=== PATIENT | female | born 1995 | race Caucasian/White ===

== ENCOUNTER 2017-02-03 08:05 | Emergency (ER) | payer OTHER ==
[2017-02-03 08:11] VITALS: BP 116/63; PULSE 96; RESP 18; TEMP 98
--- NOTE | 2017-02-03 08:24 | ED ---
Abdominal Pain HPI - General Chief Complaint: OB/Uterine Contractions Stated Complaint: 18 wks preg. No movement Time Seen by Provider: 02/03/17 08:16 Source: patient, RN notes reviewed Mode of arrival: ambulatory Limitations: no limitations - History of Present Illness Initial Comments: This a 21-year-old female presents emergency Department with chief complaint of lower abdominal pain, no movement. Patient states that she is A0 and currently [address] Turcios for her . Patient states that she normally feels some fluttering states that she has not felt that over 24 hours. Patient states that she tried pain in her room last night and noticed that she developed this lower abdominal pain. She states intermittent sharp jabbing type pain. Patient denies any nausea vomiting diarrhea, constipation. Patient denies any vaginal bleeding vaginal discharge. She has no dysuria no hematuria. Patient states she has an appointment in 10 days with her WIG STYLIST along with an ultrasound at that time. She said no, in fact return to - Related Data Allergies Allergy/AdvReac Type Severity Reaction Status Date / Time No Known Allergies Allergy Verified 02/03/17 08:10 Review of Systems ROS Statement: Those systems with pertinent positive or pertinent negative responses have been documented in the HPI. ROS Other: All systems not noted in ROS Statement are negative. Past Medical History Past Medical History: No Reported History History of Any Multi-Drug Resistant Organisms: None Reported Past Surgical History: No Surgical Hx Reported Past Psychological History: No Psychological Hx Reported Smoking Status: Never smoker Past Alcohol Use History: None Reported Past Drug Use History: None Reported General Exam Limitations: no limitations General appearance: alert, in no apparent distress Head exam: Present: atraumatic, normocephalic, normal inspection Respiratory exam: Present: normal lung sounds bilaterally. Absent: respiratory distress, wheezes, rales, rhonchi, stridor Cardiovascular Exam: Present: regular rate, normal rhythm, normal heart sounds. Absent: systolic murmur, diastolic murmur, rubs, gallop, clicks GI/Abdominal exam: Present: soft, normal bowel sounds. Absent: distended, tenderness, guarding, rebound, rigid Back exam: Absent: CVA tenderness (R), CVA tenderness (L) Skin exam: Present: warm, dry, intact, normal color. Absent: rash Course Vital Signs 02/03/17 08:07 Temperature 98 F Pulse Rate 96 Respiratory 18 Rate Blood Pressure 116/63 O2 Sat by Pulse 98 Oximetry Medical Decision Making - Medical Decision Making 21-year-old female presented for lower abdominal pain, decreased movement. Patient's heart rate was between 140 and 150 which is appropriate. Patient's pain is more consistent with round ligament pain. Patient's urinalysis does not show any evidence of UTI. Patient does not have any vaginal bleeding or vaginal discharge. She states that she follow-up with her WIG STYLIST. Return parameters were discussed. - Lab Data Lab Results 02/03/17 Range/Units 08:20 Urine Color Light Yellow Urine Appearance Cloudy H (Clear) Urine pH 7.0 (5.0-8.0) Ur Specific [place]dock 1.006 (1.001-1.035) Urine Protein Negative (Negative) Urine Glucose (UA) Negative (Negative) Urine Ketones Negative (Negative) Urine Blood Negative (Negative) Urine Nitrite Negative (Negative) Urine Bilirubin Negative (Negative) Urine Urobilinogen <2.0 (<2.0) mg/dL Ur Leukocyte Esterase Small H (Negative) Urine WBC 1 (0-5) /hpf Ur Squamous Epith Cells 1 (0-4) /hpf Amorphous Sediment Rare H (None) /hpf Urine Mucus Occasional H (None) /hpf Disposition Clinical Impression: Round ligament pain Disposition: HOME SELF-CARE Condition: Stable Instructions: Abdominal Pain in (ED) Additional Instructions: Please return to the Emergency Department if symptoms worsen or any other concerns. Referrals: Renay Rasheed MD [Primary Care Provider] - 1-2 days Jeevan Harper MD [STAFF PHYSICIAN] - 1-2 days Time of Disposition: 09:10
[2017-02-03 08:39] LABS: Amorphous Sediment,Urine Rare /hpf; Appearance,Urine Cloudy (Clear); Bilirubin,Urine Negative (Negative); Glucose,Urine (UA) Negative (Negative); Ketones,Urine Negative (Negative); Leukocyte Esterase,Urine Small (Negative); Mucus,Urine Occasional /hpf; Nitrite,Urine Negative (Negative); Particle Count 6430; Protein,Urine Negative (Negative); Specific Gravity,Urine 1.006 (1.001-1.035); Squamous Epithelial Cell,Urine 1 /hpf (0-4); UA Billing (MACRO vs. MICRO) MICRO; Urobilinogen,Urine <2.0 mg/dL (<2.0); WBC,Urine 1 /hpf (0-5)
== END 2017-02-03 09:19 | disposition home or self-care (01) ==
LOC: EC 08:05
DX: O99.89 Other specified diseases and conditions complicating pregnancy, childbirth and the puerperium (principal); R10.2 Pelvic and perineal pain; Z3A.18 18 weeks gestation of pregnancy
CPT/HCPCS: 81001; 99284

== ENCOUNTER 2017-06-13 12:15 | Outpatient (CLI) | payer OTHER ==
[2017-06-13 13:44] VITALS: BP 121/65; PULSE 93; RESP 18; TEMP 98.5
--- NOTE | 2017-07-21 16:41 | P.MSEPDOC ---
Presenting Problems - Arrival Data Date of Arrival on Unit: 06/13/17 Time of Arrival on Unit: 12:10 Mode of Transport: Ambulatory - Complaint OB-Reason for Admission/Chief Complaint: Vaginal Bleeding Medical History - Information : 1 Para: 0 Term: 0 : 0 Abortions: Spontaneous or Elective: 0 Number of Living Children: 0 - Gestational Age Gestational Age by JESSICA (wks/days): 36 Weeks and 4 Days Review of Systems - Review of Systems Constitutional: No problems Breast: No problems ENT: No problems Cardiovascular: No problems Respiratory: No problems Gastrointestinal: No problems Genitourinary: No problems Musculoskeletal: No problems Neurological: No problems Skin: No problems Vital Signs - Temperature Temperature: 98.5 F Temperature Source: Oral - Pulse Right Brachial Pulse Rate: 93 Pulse Assessment Method: Automatic Cuff - Respirations Respiratory Rate: 18 Oxygen Delivery Method: Room Air O2 Sat by Pulse Oximetry: 97 - Blood Pressure Right Arm Blood Pressure: 121/65 Blood Pressure Mean: 83 Blood Pressure Source: Automatic Cuff Medical Screen Scoring (Pre) - Cervical Exam Dilation: 1-3 cm = 1 Effacement: More than 50% = 2 Membranes: Intact - Uterine Contractions Frequency: N/A Duration: N/A Intensity: N/A - Maternal Vital Signs Maternal Temperature: N/A Maternal Blood Pressure: N/A Signs of Preeclampsia: N/A Maternal Respirations: N/A - Pain Assessment Pain Location and Character: Abdomen Pain Scale Used: Numeric (1 - 10) Pain Intensity: 5 Pain Management Goal: 10 Pain Description: *Acute, Pressure Pain Radiation Location: 0 Pain Frequency: Constant Pain Behavior: None Exhibited - Maternal Trauma Maternal Trauma: N/A - Assessment Baseline FHR: 135 Heart Rate - NICHD Category: Category I (Normal) = 0 NST: Reactive Position: N/A Station: N/A - Total Score Total Score (Pre): 3 - Level of Risk Level of Risk: Low (0-5) Physician Notification (Pre) - Physician Notified Physician Notified Date: 06/13/17 Physician Notified Time: 12:55 Physician/Practitioner Notifed:: Dr. Harper Spoke With: Dr. Harper New Order Received: Yes - Notification Comment Comment: Dr. Harper on unit. Report given. Order to complete SVE. SVE completed. 1/60/high. No blood noted. Discharge home on pelvic rest. Pt to keep scheduled appointment on 06/20/2017. Disposition - Disposition OB Disposition: Discharge to home, Written follow up instructions reviewed Transferred to:: Home Discharge Date: 06/13/17 Discharge Time: 13:15 I agree with the RN Medical Screening Exam: Yes Risk & Benefit of care provided described in d/c instruction: Yes Diagnosis: SPOTTING COMPLICATING , THIRD TRIMESTER
== END 2017-06-13 13:15 | disposition home or self-care (01) ==
LOC: FBPOP 12:15
PROVIDERS: ATTEND Obstetrics & Gynecology
DX: O26.853 Spotting complicating pregnancy, third trimester (principal); Z3A.36 36 weeks gestation of pregnancy
CPT/HCPCS: 59025; 99213

== ENCOUNTER 2017-06-25 21:50 | Outpatient (CLI) | payer OTHER ==
[2017-06-25 22:35] VITALS: BP 137/86; PULSE 101; RESP 16; TEMP 97.1
--- NOTE | 2017-07-01 09:54 | P.MSEPDOC ---
Presenting Problems - Arrival Data Date of Arrival on Unit: 06/25/17 Time of Arrival on Unit: 21:51 Mode of Transport: Ambulatory - Complaint OB-Reason for Admission/Chief Complaint: Other Comment: decreased movement. Medical History - Information : 1 Para: 0 Term: 0 : 0 Abortions: Spontaneous or Elective: 0 Number of Living Children: 0 - Gestational Age Gestational Age by JESSICA (wks/days): 38 Weeks and 2 Days Review of Systems - Review of Systems Constitutional: No problems Breast: No problems ENT: No problems Cardiovascular: No problems Respiratory: No problems Gastrointestinal: No problems Genitourinary: No problems Musculoskeletal: No problems Neurological: No problems Skin: No problems Vital Signs - Temperature Temperature: 97.1 F Temperature Source: Temporal Artery Scan - Pulse Right Pulse Rate: 101 Pulse Assessment Method: Pulse Oximetry - Respirations Respiratory Rate: 16 Oxygen Delivery Method: Room Air O2 Sat by Pulse Oximetry: 98 - Blood Pressure Right Arm Blood Pressure: 137/86 Blood Pressure Mean: 103 Blood Pressure Source: Automatic Cuff Medical Screen Scoring (Pre) - Cervical Exam Dilation: 0 cm = 0 Effacement: Exam Deferred Membranes: Intact - Uterine Contractions Frequency: N/A Duration: N/A Intensity: N/A - Maternal Vital Signs Maternal Temperature: N/A Maternal Blood Pressure: N/A Signs of Preeclampsia: N/A Maternal Respirations: N/A - Pain Assessment Pain Location and Character: Abdomen Pain Scale Used: Numeric (1 - 10) Pain Intensity: 6 Pain Management Goal: 0 Pain Description: *Acute, Aching Pain Frequency: Intermittent Pain Duration Units: Minutes Pain Behavior: Vocalization Non-Pharmacological Interventions: Environmental Control, Position/Reposition, Relaxation Technique - Maternal Trauma Maternal Trauma: N/A - Assessment Baseline FHR: 135 Heart Rate - NICHD Category: Category I (Normal) = 0 NST: Reactive Position: N/A Station: N/A - Total Score Total Score (Pre): 0 - Level of Risk Level of Risk: Low (0-5) Physician Notification (Pre) - Physician Notified Physician Notified Date: 06/25/17 Physician Notified Time: 22:21 Physician/Practitioner Notifed:: Dr. Preciado Spoke With: Dr. Preciado New Order Received: Yes (discharge home with instructions.) Medical Screen Scoring (Post) - Cervical Exam Dilation: Exam Deferred Effacement: Exam Deferred Membranes: Intact - Uterine Contractions Frequency: N/A Duration: N/A Intensity: N/A - Maternal Vital Signs Maternal Temperature: N/A Maternal Blood Pressure: N/A Signs of Preeclampsia: N/A Maternal Respirations: N/A - Pain Assessment Pain Location and Character: Abdomen Pain Scale Used: Numeric (1 - 10) Pain Intensity: 6 Pain Management Goal: 0 Pain Description: *Acute, Aching Pain Frequency: Intermittent Pain Behavior: Vocalization Non-Pharmacological Interventions: Distraction, Environmental Control, Position/ Reposition, Relaxation Technique - Maternal Trauma Maternal Trauma: N/A - Assessment Heart Rate: 140 Heart Rate - NICHD Category: Category I (Normal) = 0 NST: Reactive Position: N/A Station: N/A - Total Score Total Score (Post): 0 - Post Treatment Level of Risk Post Treatment Level of Risk: Low (0-5) Physician Notification (Post) - Physician Notified Physician Notified Date: 06/25/17 Physician Notified Time: 22:21 Physician/Practitioner Notified:: Dr. Preciado Spoke With: Dr. Preciado New Order Received: Yes (Discharge home with instructions.) Disposition - Disposition OB Disposition: Discharge to home Discharge Date: 06/25/17 Discharge Time: 22:21 I agree with the RN Medical Screening Exam: Yes Risk & Benefit of care provided described in d/c instruction: Yes Diagnosis: DECREASED MOVEMENTS, THIRD TRIMESTER, FETUS 1
== END 2017-06-25 22:25 | disposition home or self-care (01) ==
LOC: FBPOP 21:50
PROVIDERS: ATTEND Obstetrics & Gynecology
DX: O36.8193 Decreased fetal movements, unspecified trimester, fetus 3 (principal); O36.8131 Decreased fetal movements, third trimester, fetus 1; Z3A.38 38 weeks gestation of pregnancy
CPT/HCPCS: 59025; 99213

== ENCOUNTER 2017-07-03 17:43 | Outpatient (CLI) | payer OTHER ==
[2017-07-03 18:03] LABS: Mucus,Urine Occasional /hpf; RBC,Urine >182 /hpf (0-5); Squamous Epithelial Cell,Urine 1 /hpf (0-4)
[2017-07-03 18:07] LABS: Color,Urine Dark Red
[2017-07-03 18:08] LABS: Appearance,Urine Bloody (Clear)
[2017-07-03 19:33] VITALS: BP 128/77; PULSE 90; RESP 16; TEMP 97.2
--- NOTE | 2017-07-22 10:22 | P.MSEPDOC ---
Presenting Problems - Arrival Data Date of Arrival on Unit: 07/03/17 Time of Arrival on Unit: 17:43 Mode of Transport: Ambulatory - Complaint Comment: blood in urine Medical History - Information : 1 Para: 0 Term: 0 : 0 Abortions: Spontaneous or Elective: 0 Number of Living Children: 0 - Gestational Age Gestational Age by JESSICA (wks/days): 39 Weeks and 3 Days - History Complications: GBS+ Review of Systems - Review of Systems Constitutional: No problems Breast: No problems ENT: No problems Cardiovascular: No problems Respiratory: No problems Gastrointestinal: No problems Genitourinary: No problems Musculoskeletal: No problems Neurological: No problems Skin: No problems Comment: blood in urine Vital Signs - Temperature Temperature: 97.2 F Temperature Source: Temporal Artery Scan - Pulse Pulse Oximetery Pulse Rate: 90 Pulse Assessment Method: Automatic Cuff - Respirations Respiratory Rate: 16 Oxygen Delivery Method: Room Air O2 Sat by Pulse Oximetry: 98 - Blood Pressure Right Arm Sitting Blood Pressure: 128/77 Blood Pressure Mean: 94 Blood Pressure Source: Automatic Cuff Medical Screen Scoring (Pre) - Cervical Exam Dilation: 1-3 cm = 1 Membranes: Intact - Uterine Contractions Frequency: > 5 minutes apart = 1 Duration: N/A Intensity: N/A - Maternal Vital Signs Maternal Temperature: N/A Maternal Blood Pressure: N/A Signs of Preeclampsia: N/A Maternal Respirations: N/A - Maternal Trauma Maternal Trauma: N/A - Assessment Baseline FHR: 135 Heart Rate - NICHD Category: Category I (Normal) = 0 NST: Reactive Position: N/A Station: N/A - Total Score Total Score (Pre): 2 - Level of Risk Level of Risk: Low (0-5) Physician Notification (Pre) - Physician Notified Physician Notified Date: 07/03/17 Physician Notified Time: 19:05 Physician/Practitioner Notifed:: Dr Gant Medical Screen Scoring (Post) - Cervical Exam Dilation: 1-3 cm = 1 Membranes: Intact - Uterine Contractions Frequency: > 5 minutes apart = 1 Duration: > 40 seconds = 2 Intensity: N/A - Maternal Vital Signs Maternal Temperature: N/A Maternal Blood Pressure: N/A Signs of Preeclampsia: N/A Maternal Respirations: N/A - Pain Assessment Pain Location and Character: Abdomen Pain Scale Used: Numeric (1 - 10) Pain Intensity: 7 Pain Description: *Acute Pain Frequency: Intermittent - Maternal Trauma Maternal Trauma: N/A - Assessment Heart Rate - NICHD Category: Category I (Normal) = 0 NST: Reactive Position: N/A - Total Score Total Score (Post): 4 - Post Treatment Level of Risk Post Treatment Level of Risk: Low (0-5) Physician Notification (Post) - Notification Comment Comment: Dr. Gant was notified at 1900 and said if no change she could be discharged home and follow up with Dr. Harper in the office Disposition - Disposition OB Disposition: Discharge to home, Written follow up instructions reviewed Discharge Date: 07/03/17 Discharge Time: 20:15 I agree with the RN Medical Screening Exam: Yes Risk & Benefit of care provided described in d/c instruction: Yes Diagnosis: FALSE LABOR AT OR AFTER 37 COMPLETED WEEKS OF GESTATION
== END 2017-07-03 20:15 | disposition home or self-care (01) ==
LOC: FBPOP 17:43
PROVIDERS: ATTEND Obstetrics & Gynecology
DX: O47.1 False labor at or after 37 completed weeks of gestation (principal); Z3A.39 39 weeks gestation of pregnancy
CPT/HCPCS: 59025; 81003; 99213

== ENCOUNTER 2017-07-07 15:51 | Inpatient (IN) | payer OTHER ==
[2017-07-08] MEDS ORDERED: METHYLERGONOVINE 0.2 MG/ML 1 ML AMP IM PRN (21:10)
[2017-07-08] MEDS ORDERED: TERBUTALINE 1 MG/ML VIAL SQ PRN (21:10)
[2017-07-08] MEDS ORDERED: OXYTOCIN 10 UNIT/ML 1 ML VIAL IM PRN (21:10)
[2017-07-08] MEDS ORDERED: AMPICILLIN 2,000 MG in SODIUM CHLORIDE 0.9% 100 ML IVPB STA (21:10)
[2017-07-08] MEDS ORDERED: CARBOPROST TROMETHAMINE 250 MCG/ML 1 ML AMP IM PRN (21:10)
[2017-07-08] MEDS ORDERED: LIDOCAINE 1% (PF) 10 MG/ML (30 ML SDV) SQ PRN (21:10)
[2017-07-08] MEDS ORDERED: OXYTOCIN 20 UNITS/1000 ML NS 1,000 ML IV SCH (21:15)
[2017-07-08 21:29] VITALS: BMI 30.9
[2017-07-08 21:44] LABS: Basophils % (A) 0 %; Eosinophils # (A) 0.2 k/uL (0-0.7); Eosinophils % (A) 2 %; HCT 37.6 % (34.0-46.0); HGB 12.8 gm/dL (11.4-16.0); Lymphocytes # (A) 1.8 k/uL (1.0-4.8); Lymphocytes % (A) 12 %; MCH 29.7 pg (25.0-35.0); MCV 87.4 fL (80.0-100.0); Mean Platelet Volume 7.9; Monocytes # (A) 0.9 k/uL (0-1.0); Monocytes % (A) 6 %; Neutrophils # (A) 11.7 k/uL (1.3-7.7); Neutrophils % (A) 79 %; Platelet Count 333 k/uL (150-450); RDW 13.9 % (11.5-15.5); WBC 14.8 k/uL (4.0-11.0)
[2017-07-08] MEDS: LACTATED RINGERS 1,000 ML IV SCH (21:48)
[2017-07-08] MEDS: BUTORPHANOL 1 MG/ML 1 ML VIAL IV PRN (22:05)
[2017-07-09] MEDS: BUTORPHANOL 1 MG/ML 1 ML VIAL IV PRN ×3 (00:12→06:05)
[2017-07-09] MEDS: AMPICILLIN 1,000 MG in SODIUM CHLORIDE 0.9% 50 ML IVPB SCH ×3 (01:50→20:05)
[2017-07-09] MEDS: LACTATED RINGERS 1,000 ML IV SCH ×2 (02:42→20:05)
[2017-07-09] MEDS ORDERED: HYDROCORTISONE 2.5% RECTAL CREAM 30 GM TUBE RECTAL PRN (09:55)
[2017-07-09] MEDS ORDERED: diphenhydrAMINE 50 MG CAP PO PRN (09:55)
[2017-07-09] MEDS ORDERED: diphenhydrAMINE 50 MG/ML 1 ML VIAL IVP PRN ×2 (09:55)
[2017-07-09] MEDS ORDERED: ZOLPIDEM 5 MG TAB PO PRN (09:55)
[2017-07-09] MEDS ORDERED: WITCH HAZEL 1 EACH MED..PAD TOPICAL PRN (09:55)
[2017-07-09] MEDS ORDERED: BENZOCAINE/MENTHOL SPRAY 1 GM/SPRAY AEROSOL TOPICAL PRN (09:55)
[2017-07-09] MEDS ORDERED: diphenhydrAMINE 25 MG CAP PO PRN (09:55)
[2017-07-09] MEDS ORDERED: SIMETHICONE 80 MG CHEWABLE PO PRN (09:55)
[2017-07-09] MEDS ORDERED: LANOLIN CREAM 5 GM TUBE TOPICAL PRN (09:55)
[2017-07-09] MEDS ORDERED: Acetaminophen-Codeine 300-30mg TAB PO PRN ×2 (09:55)
[2017-07-09] MEDS ORDERED: OXYTOCIN 20 UNITS/1000 ML NS 1,000 ML IV SCH (10:00)
--- NOTE | 2017-07-09 10:02 | P.HPOB ---
History of Present Illness H&P Date: 07/09/17 Chief Complaint: 40-2/7 weeks, labor The patient is a 21-year-old 1 para 0 admitted at 40-2/7 weeks as established by last menstrual period and confirmed by 19 week ultrasound. She is admitted in early active labor with all signs reassuring. Her has been essentially uncomplicated though she was found early in the to have chlamydia which was retested later in the and found absent. She was also found to be group B strep positive. Obstetrical history: 1 para 0 with current statistics listed above. EDC of 07/07/2017 was established by last menstrual period and confirmed by 19 week ultrasound. Laboratory workup demonstrates a blood type of O+ with a negative antibody screen. Rubella status is immune. All other laboratory workup was within normal limits aside from the initial positive chlamydia culture which was retested and found negative later in the . One hour Glucola was within normal limits and group B strep status is positive. Gynecologic history: Unremarkable with no history of any infections the aside from the initial positive chlamydia test which was cured. Review of Systems Review of systems is confined to history of present illness. Past Medical History Past Medical History: No Reported History History of Any Multi-Drug Resistant Organisms: None Reported Past Surgical History: No Surgical Hx Reported Past Psychological History: No Psychological Hx Reported Smoking Status: Never smoker Past Alcohol Use History: None Reported Past Drug Use History: None Reported - Past Family History Mother Family Medical History: Hypertension Medications and Allergies Home Medications Medication Instructions Recorded Confirmed Type Pnv No.111/Iron/Folate/Dha 1 tab PO DAILY 05/20/17 07/08/17 History [Nestabs One Softgel] Allergies Allergy/AdvReac Type Severity Reaction Status Date / Time No Known Allergies Allergy Verified 07/08/17 13:56 Exam - Vital Signs Vital signs: Vital Signs Temp Pulse Resp BP Pulse Ox 07/08/17 21:15 97.5 F L 107 H 18 133/82 98 Intake and Output 07/08/17 07/09/17 07/09/17 22:59 06:59 14:59 Intake Total 11.6 Balance 11.6 Intake: Intake, IV Titration 11.6 Amount Oxytocin 20 Units/1000 ml 11.6 Ns 1,000 ml @ 1 MILLIUNIT/MIN 3 mls/hr IV .Q24H [facility] Rx#:[id number] Other: # Voids 2 1 Weight 87.09 kg In general, this is a well-developed, well-nourished white female in no acute distress. Her heart has a regular rhythm and rate without murmur. Her lungs are clear to auscultation bilaterally in all king. Her abdomen is gravid, nondistended, has normal active bowel sounds, is soft, nontender, and without any palpable masses aside from uterine fundus. Her extremities are without any cyanosis, clubbing, or significant edema and are nontender to palpation. At the time of my examination, the patient was found to be complete and at +1 station. The vertex is in presentation. There does appear to be some meconium- stained fluid. Results Result Diagrams: 07/08/17 21:25 Abnormal Lab Results - Last 24 Hours (Table) 07/08/17 Range/Units 21:25 WBC 14.8 H (4.0-11.0) k/uL Neutrophils # 11.7 H (1.3-7.7) k/uL Assessment and Plan (1) Group B streptococcal infection in Current Visit: Yes Status: Acute Code(s): O98.819 - OTH MATERNAL INFEC/ PARASTC DISEASES COMP PREG, UNSP TRI; B95.1 - STREPTOCOCCUS, GROUP B, CAUSING DISEASES CLASSD ELSWHR SNOMED Code(s): 377319119 (2) Active labor at term Current Visit: Yes Status: Acute Code(s): GVZ9655 - SNOMED Code(s): 09525095 Plan: The patient has been admitted for active management of labor. She has had antibiotic prophylaxis started for group B strep and Pitocin augmentation was started. She did have spontaneous rupture of membranes which appeared to demonstrate clear fluid but there does appear to be meconium at this time. She will continue to have close maternal surveillance and expectant management B practiced. She will begin pushing shortly and anticipate normal vaginal delivery in the near future. She declined any analgesia during labor.
--- NOTE | 2017-07-09 10:05 | P.PROBDLV ---
Vaginal Delivery Note - . Vaginal Delivery Note: The patient is a 21-year-old 1 para 0 admitted at 40-2/7 weeks by good dating parameters. She was to undergo induction today but presented last night in early active labor with all signs reassuring. Her has been essentially uncomplicated though she had an initial positive chlamydia culture which was treated and cured. She additionally was found to be group B strep positive. As result, she had antibiotic prophylaxis started and later underwent Pitocin augmentation. She had spontaneous rupture of membranes during labor which demonstrated what was thought to be clear fluid. At the time of pushing appeared meconium stained fluid was present. She made good progress through the active phase of labor to complete and then pushed over the course of approximately 1 hour to a normal spontaneous vaginal delivery of a viable 8 lbs. 0 oz. baby boy with Apgars of 8 at 1 minute and 9 at 5 minutes delivered in the right occiput anterior position. There was a nuchal cord 1 which was reduced following delivery of the infant. The nose and mouth were thoroughly suctioned on the perineum before delivery as there was meconium present. The nurse bottom crane operator was present but not needed as the was immediately vigorous after . The placenta was delivered spontaneously, intact, and grossly normal although meconium-stained with a grossly normal, centrally inserted three-vessel cord. There was a small second-degree midline laceration with extension onto the left labia which was repaired using 3-0 chromic catgut without difficulty. Estimated blood loss for the case was approximately 200 mL. There are no complications. All sponge, instrument, and needle counts were correct. Both mother and infant are resting comfortably in recovery.
[2017-07-09] MEDS: IBUPROFEN 600 MG TAB PO PRN ×2 (10:21→19:13)
[2017-07-09] MEDS: SENNOSIDES-DOCUSATE SODIUM 1 EACH TAB PO SCH (20:06)
[2017-07-09] MEDS: ACETAMINOPHEN TAB 325 MG TAB PO PRN (23:18)
[2017-07-10] MEDS: ACETAMINOPHEN TAB 325 MG TAB PO PRN (07:52)
[2017-07-10] MEDS: SENNOSIDES-DOCUSATE SODIUM 1 EACH TAB PO SCH (07:52)
[2017-07-10 08:39] VITALS: RESP 17
--- NOTE | 2017-07-10 09:30 | P.DS ---
Providers Date of admission: 07/08/17 20:50 Expected date of discharge: 07/10/17 Attending physician: Jeevan Harper Primary care physician: Renay Rasheed - Discharge Diagnosis(es) (1) Group B streptococcal infection in Current Visit: Yes Status: Acute (2) Active labor at term Current Visit: Yes Status: Acute (3) Normal spontaneous vaginal delivery Current Visit: Yes Status: Acute Hospital Course: The patient is a 21-year-old 1 para 0 admitted at 40-2/7 weeks by good dating parameters. She is admitted in early active labor with all signs reassuring. Her was uncomplicated though she was treated for and cured of chlamydia during the . She also is known to be group B strep positive. As result, she had antibody prophylaxis started upon admission. She later had Pitocin augmentation started. An epidural catheter was placed for analgesia and she progressed relatively quickly to complete where after she pushed to a normal spontaneous vaginal delivery of a viable 8 lbs. 0 oz. baby boy with Apgars of 8 at 1 minute and 9 at 5 minutes. Her course was unremarkable vital signs remaining stable and her temperature was afebrile throughout. She was deemed stable for discharge by day #1 and was discharged home to follow-up in the office in 6 weeks' time routinely. Discharge instructions included calling for any significantly increased bleeding or foul-smelling lochia, significantly increased fever abdominal pain, perineal complaints, breast complaints, or anything else that concerned her. She was additionally instructed to have nothing in the vagina for at least 6 weeks time to include intercourse. She understood her instructions and agrees follow up as noted above. Discharge medications included continued vitamins as she has opted to breast-feed as well as [id number] analgesic pain medications. Maternal blood type is O+ and rubella status is immune. Procedures: #1. Antibiotic prophylaxis #2. Pitocin augmentation #3. Epidural analgesia # 4. Normal spontaneous vaginal delivery #5. Repair of perineal laceration Patient Condition at Discharge: Good Plan - Discharge Summary New Discharge Prescriptions: No Action Pnv No.111/Iron/Folate/Dha [Nestabs One Softgel] 1 tab PO DAILY Discharge Medication List Pnv No.111/Iron/Folate/Dha [Nestabs One Softgel] 1 tab PO DAILY 05/20/17 [ History] Follow up Appointment(s)/Referral(s): Jeevan Harper MD [STAFF PHYSICIAN] - 6 Weeks Discharge Disposition: HOME SELF-CARE
[2017-07-10 16:17] VITALS: BP 133/80; PULSE 96; TEMP 98.4
== END 2017-07-10 16:55 | disposition home or self-care (01) | DRG 774 ==
LOC: 4FBP 07-08 20:50
PROVIDERS: ADMIT Obstetrics & Gynecology Obstetrics; ATTEND Obstetrics & Gynecology
PROC: 10E0XZZ Delivery of Products of Conception, External Approach (ICD-10-PCS; principal; 2017-07-09)
PROC: 0KQM0ZZ Repair Perineum Muscle, Open Approach (ICD-10-PCS; 2017-07-09)
PROC: 00HU33Z Insertion of Infusion Device into Spinal Canal, Percutaneous Approach (ICD-10-PCS; 2017-07-09)
PROC: 3E0R3BZ Introduction of Anesthetic Agent into Spinal Canal, Percutaneous Approach (ICD-10-PCS; 2017-07-09)
DX: O98.82 Other maternal infectious and parasitic diseases complicating childbirth (principal); Z37.0 Single live birth; O77.0 Labor and delivery complicated by meconium in amniotic fluid; O69.81X0 Labor and delivery complicated by cord around neck, without compression, not applicable or unspecified; B95.1 Streptococcus, group B, as the cause of diseases classified elsewhere; O70.1 Second degree perineal laceration during delivery; Z3A.40 40 weeks gestation of pregnancy; Z82.49 Family history of ischemic heart disease and other diseases of the circulatory system
CPT/HCPCS: 59025; 85025; 88307; 99213

== ENCOUNTER 2017-07-08 13:40 | Outpatient (CLI) | payer OTHER ==
[2017-07-08 14:06] VITALS: BP 137/66; PULSE 86; RESP 16; TEMP 98.4
--- NOTE | 2017-07-12 08:14 | P.MSEPDOC ---
Presenting Problems - Arrival Data Date of Arrival on Unit: 07/08/17 Time of Arrival on Unit: 13:50 Mode of Transport: Ambulatory - Complaint OB-Reason for Admission/Chief Complaint: Decreased Movement, Other Comment: decreased movement and c/o cramping and some vaginal bleeding when pt wipes Medical History - Information : 1 Para: 0 Term: 0 : 0 Abortions: Spontaneous or Elective: 0 Number of Living Children: 0 - Gestational Age Gestational Age by JESSICA (wks/days): 40 Weeks and 1 Days Review of Systems - Review of Systems Constitutional: No problems Breast: No problems ENT: No problems Cardiovascular: No problems Respiratory: No problems Gastrointestinal: No problems Genitourinary: No problems Musculoskeletal: No problems Neurological: No problems Skin: No problems Vital Signs - Temperature Temperature: 98.4 F Temperature Source: Oral - Pulse Right Brachial Pulse Rate: 86 Pulse Assessment Method: Automatic Cuff - Respirations Respiratory Rate: 16 Oxygen Delivery Method: Room Air - Blood Pressure Right Arm Blood Pressure: 137/66 Blood Pressure Mean: 89 Blood Pressure Source: Automatic Cuff Medical Screen Scoring (Pre) - Cervical Exam Dilation: 1-3 cm = 1 Membranes: Intact - Uterine Contractions Frequency: N/A Duration: N/A Intensity: N/A - Maternal Vital Signs Maternal Temperature: N/A Maternal Blood Pressure: N/A Signs of Preeclampsia: N/A Maternal Respirations: N/A - Pain Assessment Pain Location and Character: Abdomen Pain Scale Used: Numeric (1 - 10) Pain Intensity: 9 Pain Management Goal: 2 Pain Description: Cramping Pain Radiation Location: n/a Pain Frequency: Occasional Pain Duration: 40 Pain Duration Units: Minutes Pain Behavior: None Exhibited Pain Aggravating Factors: Contractions, Position Non-Pharmacological Interventions: Position/Reposition, Relaxation Technique - Maternal Trauma Maternal Trauma: N/A - Total Score Total Score (Pre): 1 Medical Screen Scoring (Post) - Assessment Heart Rate: 130 Heart Rate - NICHD Category: Category I (Normal) = 0 NST: Reactive Position: N/A Station: N/A - Total Score Total Score (Post): 0 - Post Treatment Level of Risk Post Treatment Level of Risk: Low (0-5) Physician Notification (Post) - Physician Notified Physician Notified Date: 07/08/17 Physician Notified Time: 14:20 Spoke With: DR TREMP New Order Received: Yes - Notification Comment Comment: GET REACTIVE NST AND RECHECK PT IN 1HR OF NO CHANGE MAY DISCHARGE TO HOME Disposition - Disposition OB Disposition: Discharge to home Discharge Date: 07/08/17 Discharge Time: 15:30 I agree with the RN Medical Screening Exam: Yes Risk & Benefit of care provided described in d/c instruction: Yes Diagnosis: DECREASED MOVEMENTS, THIRD TRIMESTER, UNSP
== END 2017-07-08 15:30 | disposition home or self-care (01) ==
LOC: FBPOP 13:40
PROVIDERS: ATTEND Obstetrics & Gynecology Obstetrics
DX: Z53.9 Procedure and treatment not carried out, unspecified reason (principal)
CPT/HCPCS: 59025; 99213

== ENCOUNTER 2021-07-21 06:15 | Inpatient (IN) | payer OTHER ==
[2021-07-21] MEDS ORDERED: CARBOPROST TROMETHAMINE 250 MCG/ML 1 ML AMP IM PRN (06:58)
[2021-07-21] MEDS ORDERED: TERBUTALINE 1 MG/ML VIAL SQ PRN (06:58)
[2021-07-21] MEDS ORDERED: OXYTOCIN 10 UNIT/ML 1 ML VIAL IM PRN (06:58)
[2021-07-21] MEDS ORDERED: LIDOCAINE 1% (PF) 10 MG/ML (30 ML SDV) SQ PRN (06:58)
[2021-07-21] MEDS ORDERED: METHYLERGONOVINE 0.2 MG/ML 1 ML AMP IM PRN (06:58)
[2021-07-21] MEDS ORDERED: OXYTOCIN 30 UNITS/500 ML NS 30 UNIT in SALINE 1 500ML.BAG IV SCH ×2 (07:00→13:00)
[2021-07-21] MEDS: LACTATED RINGERS 1,000 ML IV SCH (07:18)
[2021-07-21 07:35] LABS: Basophils # (A) 0.1 k/uL (0-0.2); Basophils % (A) 1 %; Eosinophils # (A) 0.2 k/uL (0-0.7); Eosinophils % (A) 2 %; HCT 34.2 % (34.0-46.0); HGB 10.9 gm/dL (11.4-16.0); Hypochromasia Slight; Lymphocytes # (A) 2.1 k/uL (1.0-4.8); Lymphocytes % (A) 20 %; MCH 26.7 pg (25.0-35.0); MCV 83.5 fL (80.0-100.0); Mean Platelet Volume 7.6; Monocytes # (A) 0.7 k/uL (0-1.0); Monocytes % (A) 7 %; Neutrophils # (A) 7.4 k/uL (1.3-7.7); Neutrophils % (A) 69 %; Platelet Count 402 k/uL (150-450); RBC 4.09 m/uL (3.80-5.40); RDW 15.2 % (11.5-15.5); WBC 10.7 k/uL (3.8-10.6)
[2021-07-21] MEDS: BUTORPHANOL 1 MG/ML 1 ML VIAL IV PRN ×2 (09:33→11:34)
[2021-07-21] MEDS ORDERED: diphenhydrAMINE 25 MG CAP PO PRN (12:59)
[2021-07-21] MEDS ORDERED: HYDROcodone/APAP 7.5-325MG 1 EACH TAB PO PRN (12:59)
[2021-07-21] MEDS ORDERED: diphenhydrAMINE 50 MG CAP PO PRN (12:59)
[2021-07-21] MEDS ORDERED: ZOLPIDEM 5 MG TAB PO PRN (12:59)
[2021-07-21] MEDS ORDERED: HYDROCORTISONE 2.5% RECTAL CREAM 30 GM TUBE RECTAL PRN (12:59)
[2021-07-21] MEDS ORDERED: LANOLIN CREAM 5 GM TUBE TOPICAL PRN (12:59)
[2021-07-21] MEDS ORDERED: diphenhydrAMINE 50 MG/ML 1 ML VIAL IVP PRN ×2 (12:59)
[2021-07-21] MEDS ORDERED: BENZOCAINE/MENTHOL SPRAY 1 GM/SPRAY AEROSOL TOPICAL PRN (12:59)
[2021-07-21] MEDS ORDERED: HYDROcodone/APAP 5-325MG 1 EACH TAB PO PRN (12:59)
[2021-07-21] MEDS ORDERED: SIMETHICONE 80 MG CHEWABLE PO PRN (12:59)
[2021-07-21] MEDS ORDERED: ACETAMINOPHEN TAB 325 MG TAB PO PRN (12:59)
--- NOTE | 2021-07-21 13:05 | P.HPOB ---
History of Present Illness H&P Date: 07/21/21 Chief Complaint: 39-4/7 weeks, elective induction of labor The patient is a 25-year-old 5 para 2021 admitted at 39-4/7 weeks as established by seven-week ultrasound. She is admitted for elective induction of labor with all signs reassuring, category 1 heart rate tracing, secondary to the diagnosis of large for gestational age with growth at the 93rd pe rcentile at 37 weeks. She additionally was found to have polyhydramnios. testing weekly basis has been reassuring since that time. Her was otherwise uncomplicated and group B strep status is negative. Obstetrical history: 5 para 2021 with 2 previous term vaginal deliveries without complications in 2 early miscarriages. Current statistics are listed in history of present illness. EDC of 07/24/2021 was established by a 7 week ultrasound. Laboratory workup demonstrates a blood type of O+ with a negative antibody screen. Rubella status is immune. The remainder of the laboratory workup was entirely within normal limits. One hour Glucola was normal and group B strep status is negative. Gynecologic history: Unremarkable with no history of any infections to include STDs. Review of Systems Review of systems is confined to history of present illness. Past Medical History Past Medical History: No Reported History History of Any Multi-Drug Resistant Organisms: None Reported Past Surgical History: No Surgical Hx Reported Past Anesthesia/Blood Transfusion Reactions: No Reported Reaction Past Psychological History: No Psychological Hx Reported Smoking Status: Former smoker Past Alcohol Use History: None Reported Past Drug Use History: None Reported - Past Family History Mother Family Medical History: Hypertension Medications and Allergies Home Medications Medication Instructions Recorded Confirmed Type Cholecalciferol [Vitamin D3 (25 1 tab PO DAILY 07/21/21 07/21/21 History Mcg = 1000 Iu)] Pnv No.95/Ferrous Fum/Folic AC 1 tab PO DAILY 07/21/21 07/21/21 History [ Multivitamin Tablet] Allergies Allergy/AdvReac Type Severity Reaction Status Date / Time No Known Allergies Allergy Verified 07/21/21 07:09 Exam Vital Signs Temp Pulse Resp BP 07/21/21 12:34 97.1 F L 101 H 17 145/81 07/21/21 07:12 96.3 F L 89 17 129/90 Intake and Output 07/20/21 07/21/21 07/21/21 22:59 06:59 14:59 Intake Total 1009.867 Output Total 150 Balance 859.867 Intake: IV 1000 Intake, IV Titration 9.867 Amount Oxytocin 30 Units/500 ml 9.867 Ns 30 unit In Saline 1 500ml.bag @ Per Protocol IV .Q0M PENDING SALE TO [facility] Rx#:[id number] Output: Output, Quantitative 150 Blood Loss Other: # Voids 4 Weight 88.904 kg 88.904 kg In general, this is a well-developed, well-nourished white female in no acute distress. Her heart has a regular rhythm and rate without murmur. Her lungs c lear to auscultation bilaterally in all king. Her abdomen is gravid, nondistended, has normal active bowel sounds, is soft, nontender, and without any palpable masses aside from uterine fundus. Her extremities without any cyanosis, clubbing, or edema and are nontender to palpation bilaterally. Digital cervical examination them straights her cervix to be approximately 2-3 cm dilated, 50% effaced, the vertex in presentation at -2 station. Artificial rupture of membranes is carried out demonstrating clear fluid. Results Result Diagrams: 07/21/21 07:15 Abnormal Lab Results - Last 24 Hours (Table) 07/21/21 Range/Units 07:15 WBC 10.7 H (3.8-10.6) k/uL Hgb 10.9 L (11.4-16.0) gm/dL Assessment and Plan (1) Polyhydramnios Current Visit: Yes Status: Acute Code(s): O40.9XX0 - POLYHYDRAMNIOS, UNSP TRIMESTER, NOT APPLICABLE OR UNSP SNOMED Code(s): 97538483 (2) Term Current Visit: Yes Status: Acute Code(s): Z34.90 - ENCNTR FOR SUPRVSN OF NORMAL , UNSP, UNSP TRIMESTER SNOMED Code(s): 12209401 (3) Large for gestational age fetus Current Visit: Yes Status: Acute Code(s): QHE4102 - SNOMED Code(s): 77191 6008 Plan: The patient is admitted for elective induction of labor with all signs reassuring. She has had Pitocin augmentation started and undergone artificial rupture of membranes. She will have close maternal and surveillance and expectant management will be practiced. She is a good candidate for either IV or epidural analgesia, whichever she may choose. She has expressed the desire to not have an epidural if possible.
--- NOTE | 2021-07-21 13:07 | P.PROBDLV ---
Vaginal Delivery Note - . Vaginal Delivery Note: The patient is a 25-year-old 5 para 2021 admitted at 39-4/7 weeks by good dating parameters. She is admitted for elective induction of labor secondary to an LGA fetus at the 93rd percentile and polyhydramnios. On labor and delivery, all signs reassuring with a category 1 heart rate tracing. She had Pitocin augmentation started and underwent artificial rupture of membranes. She made steady progress through the latent phase and active phase of labor and ultimately progressed to complete after which time she pushed over the course of approximately 25-30 minutes to a normal spontaneous vaginal delivery of a viable 9 lbs. 0 oz. baby boy with Apgars of 9 at 1 minute and 9 at 5 minutes delivered in the left occiput anterior position. The placenta was delivered spontaneously, intact, and grossly normal with a grossly normal three- vessel cord inserted approximately 2-3 cm from the margin of the placental disc. There were no lacerations of the perineum, vagina, or cervix. Estimated blood loss for the case is approximately 150 mL. There were no complications. All sponge, instrument, needle counts were correct. Both mother and infant are resting comfortably in recovery.
[2021-07-21] MEDS: IBUPROFEN 600 MG TAB PO PRN ×2 (14:01→19:46)
[2021-07-21] MEDS: SENNOSIDES-DOCUSATE SODIUM 1 EACH TAB PO SCH (19:47)
[2021-07-22] MEDS: LACTATED RINGERS 1,000 ML IV SCH (02:20)
[2021-07-22 07:01] LABS: Basophils # (A) 0.1 k/uL (0-0.2); Basophils % (A) 0 %; Eosinophils # (A) 0.3 k/uL (0-0.7); Eosinophils % (A) 2 %; HCT 31.8 % (34.0-46.0); HGB 10.1 gm/dL (11.4-16.0); Hypochromasia Slight; Lymphocytes # (A) 2.2 k/uL (1.0-4.8); Lymphocytes % (A) 21 %; MCH 26.8 pg (25.0-35.0); MCHC 31.9 g/dL (31.0-37.0); MCV 84.1 fL (80.0-100.0); Mean Platelet Volume 7.4; Monocytes # (A) 0.7 k/uL (0-1.0); Monocytes % (A) 6 %; Neutrophils # (A) 7.2 k/uL (1.3-7.7); Neutrophils % (A) 68 %; Platelet Count 353 k/uL (150-450); RBC 3.78 m/uL (3.80-5.40); RDW 15.2 % (11.5-15.5); WBC 10.6 k/uL (3.8-10.6)
[2021-07-22] MEDS: SENNOSIDES-DOCUSATE SODIUM 1 EACH TAB PO SCH (08:46)
[2021-07-22 08:49] VITALS: BP 111/74; PULSE 71; RESP 14; TEMP 98.1
--- NOTE | 2021-07-22 09:40 | P.DS ---
Providers Date of admission: 07/21/21 06:40 Expected date of discharge: 07/22/21 Attending physician: Jeevan Harper Primary care physician: Stated None - Discharge Diagnosis(es) (1) Polyhydramnios Current Visit: Yes Status: Acute (2) Term Current Visit: Yes Status: Acute (3) Large for gestational age fetus Current Visit: Yes Status: Acute (4) Normal spontaneous vaginal delivery Current Visit: Yes Status: Acute Hospital Course: The patient is a 25-year-old 5 para 2021 admitted at 39-4/7 weeks by good dating parameters. She is admitted for elective induction with all signs reassuring. She did have the fetus growing at the 93rd percentile by ultrasound at 37 weeks and was also found to have polyhydramnios. testing was reassuring. Aside from these findings, her was uncomplicated and group B strep status was negative. On labor and delivery, she had Pitocin started followed by artificial rupture of membranes for clear fluid. She made progress to the latent and active phase of labor to complete and then ultimately pushed to a normal spontaneous vaginal delivery of a viable 9 lbs. 0 oz. baby boy with Apgars of 9 at 1 minute and 9 at 5 minute. Her course was unremarkable with vital signs remained stable and her temperature was afebrile throughout. She was deemed stable for discharge on day #1 was discharged home to follow-up in the office in 6 weeks' time routinely. Discharge instructions included calling for any significantly increased bleeding or foul-smelling lochia, significantly increased fever abdominal pain, perineal complaints, breast complaints, or anything else that concerned her. She was additionally instructed to have nothing in the vagina for at least 6 weeks time to include intercourse. She understood her instructions and agrees to follow up as noted above. Discharge medications included [id number] analgesic pain medications as well as continued vitamins as she has opted to breast- feed. Maternal blood type is O+ and rubella status is immune. Procedures: #1. Pitocin induction #2. Artificial rupture of membranes #3. Normal spontaneous vaginal delivery Patient Condition at Discharge: Stable Plan - Discharge Summary New Discharge Prescriptions: No Action Cholecalciferol [Vitamin D3 (25 Mcg = 1000 Iu)] 1 tab PO DAILY Pnv No.95/Ferrous Fum/Folic AC [ Multivitamin Tablet] 1 tab PO DAILY Discharge Medication List Cholecalciferol [Vitamin D3 (25 Mcg = 1000 Iu)] 1 tab PO DAILY 07/21/21 [History] Pnv No.95/Ferrous Fum/Folic AC [ Multivitamin Tablet] 1 tab PO DAILY 07/21/21 [History] Follow up Appointment(s)/Referral(s): Jeevan Harper MD [STAFF PHYSICIAN] - 6 Weeks Discharge Disposition: HOME SELF-CARE
== END 2021-07-22 13:25 | disposition home or self-care (01) | DRG 807 ==
LOC: 4FBP 06:40
PROVIDERS: ADMIT Obstetrics & Gynecology; ATTEND Obstetrics & Gynecology
PROC: 10907ZC Drainage of Amniotic Fluid, Therapeutic from Products of Conception, Via Natural or Artificial Opening (ICD-10-PCS; principal; 2021-07-21)
PROC: 10E0XZZ Delivery of Products of Conception, External Approach (ICD-10-PCS; principal; 2021-07-21)
DX: O40.3XX0 Polyhydramnios, third trimester, not applicable or unspecified (principal); Z37.0 Single live birth; O36.63X0 Maternal care for excessive fetal growth, third trimester, not applicable or unspecified; O32.8XX0 Maternal care for other malpresentation of fetus, not applicable or unspecified; Z3A.39 39 weeks gestation of pregnancy; Z82.49 Family history of ischemic heart disease and other diseases of the circulatory system; Z87.891 Personal history of nicotine dependence
CPT/HCPCS: 85025; 86850; 86900; 86901